=== PATIENT | male | born 1980 | race Caucasian/White ===

== ENCOUNTER 2020-09-24 13:42 | Emergency (ER) | payer OTHER, SELFPAY ==
[2020-09-24 14:13] VITALS: BP 108/81; PULSE 102; RESP 20; TEMP 36.3; O2SAT 98
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
[2020-09-24 14:47] VITALS: PULSE 98; RESP 20; O2SAT 98
== END 2020-09-24 14:51 | disposition home or self-care (01) ==
PROVIDERS: Emergency Provider Emergency Medicine
DX: M54.9 Dorsalgia, unspecified (principal)
CPT/HCPCS: 99283

== ENCOUNTER 2020-11-07 13:39 | Outpatient (RCR) | payer OTHER, SELFPAY ==
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
== END 2020-12-04 09:10 | disposition home or self-care (01) ==
LOC: CHSPT 13:39
PROVIDERS: PCP Family Medicine; Visit Provider Family Medicine
DX: S22.000S Wedge compression fracture of unspecified thoracic vertebra, sequela (principal)
CPT/HCPCS: 97014; 97110; 97161; G0283